=== PATIENT | male | born 1995 | race Caucasian/White ===

== ENCOUNTER 2017-10-22 06:09 | Emergency (ER) | payer OTHER ==
[~2017-10-22] VITALS: Ht 182.9 cm; Wt 78.0 kg
[2017-10-22 06:14] VITALS: Ht 182.9 cm; Wt 78.0 kg
[2017-10-22 09:40] VITALS: BP 132/80
== END 2017-10-22 09:40 | disposition other institution (70) ==
LOC: ED 06:09
DX: Z02.89 Encounter for other administrative examinations (principal)
CPT/HCPCS: J7030